=== PATIENT | female | born 2000 | race Caucasian/White ===

== ENCOUNTER → 2018-02-09 06:34 | Emergency (ER) | payer OTHER ==
[2018-02-09 06:41] VITALS: BP 111/64
--- NOTE | 2018-02-09 07:44 | ED ---
Back Pain - HPI Summary HPI Summary: Patient is a 18-year-old female who presents emergency department for right upper back pain times several days. Patient states she had upper respiratory infection 2 weeks ago and has had a lingering cough. She developed right upper back pain several days ago that is worse with movement and deep inspiration. 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 She otherwise denies fever, chills, abdominal pain, vomiting, diarrhea, urinary symptoms. She has been taking Tylenol and Motrin with minimal relief. Past medical history of ADHD. She denies recent surgery, prolonged sitting, history of clotting disorder, swelling in her legs, oral contraceptives. Symptoms are mild in severity. - History of Current Complaint Chief Complaint: EDGeneral Stated Complaint: BACK PAIN Time Seen by Provider: 02/09/18 07:03 Hx Obtained From: Patient Pain Intensity: 8 - Allergies/Home Medications Allergies/Adverse Reactions: Allergies Allergy/AdvReac Type Severity Reaction Status Date / Time cefprozil [From Cefzil] Allergy Hives Verified 02/09/18 06:38 Home Medications: Home Medications Amphetamine/Dextroamph ER(NF) [Adderal XR (NF)] 10 mg PO DAILY 02/09/18 [ History Confirmed 02/09/18] PMH/Surg Hx/FS Hx/Imm Hx Previously Healthy: Yes Infectious Disease History: No Infectious Disease History: Denies: Traveled Outside the [place] in Last 30 Days - Social History Occupation: Employed Full-time Lives: With Family Review of Systems Constitutional: Negative Eyes: Negative ENT: Negative Cardiovascular: Negative Positive: Cough. Negative: Shortness Of Breath Gastrointestinal: Negative Negative: Abdominal Pain, Vomiting, Diarrhea, Nausea Genitourinary: Negative Positive: Other - Right upper back pain Skin: Negative Neurological: Negative All Other Systems Reviewed And Are Negative: Yes Physical Exam Triage Information Reviewed: Yes Vital Signs On Initial Exam: Initial Vitals Temp Pulse Resp BP Pulse Ox 97.5 F 73 20 111/64 100 02/09/18 06:35 02/09/18 06:35 02/09/18 06:35 02/09/18 06:35 02/09/18 06:35 Vital Signs Reviewed: Yes Appearance: Positive: Well-Appearing - Pt. sitting up in bed in NAD. Signficiant other present. Skin: Positive: Warm, Dry Head/Face: Positive: Normal Head/Face Inspection Eyes: Positive: Normal ENT: Positive: Pharynx normal, TMs normal. Negative: Nasal congestion Neck: Positive: Supple Respiratory/Lung Sounds: Positive: Clear to Auscultation, Breath Sounds Present Cardiovascular: Positive: Normal, RRR Abdomen Description: Positive: Other: - No CVA tenderness. Musculoskeletal: Positive: Normal, Other - Pain and tightening of muscles surrounding right scapula. Neurological: Positive: Normal Psychiatric: Positive: Normal Diagnostics - Vital Signs Vital Signs Temp Pulse Resp BP Pulse Ox 02/09/18 06:35 97.5 F 73 20 111/64 100 - Laboratory Lab Statement: Any lab studies that have been ordered have been reviewed, and results considered in the medical decision making process. Back Pain Course/Dx - Course Course Of Treatment: Pt. presenting with right upper back pain that is reproducible. She has had recent ongoing cough. She is afebrile with stable vital signs. Oxygenation saturation is 100% on room air which is normal. PERC score is 0. Will obtain CXR to r/o pneumonia. Chest x-ray is negative for infiltrate or acute changes, reading per myself and Dr. Kumar. Results were discussed. Will prescribe naproxen and Flexeril. Advised to apply warm compresses intermittently and gentle massage. Close follow-up with PCP return to the ER symptoms change or worsen. Patient understands and agrees with this plan. - Diagnoses Differential Diagnosis/HQI/PQRI: Positive: Strain, Sprain Provider Diagnoses: Muscle spasm, Muscle strain Discharge - Sign-Out/Discharge Documenting (check all that apply): Discharge/Admit/Transfer - Discharge Plan Condition: Good Disposition: HOME Prescriptions: Cyclobenzaprine TAB* [Flexeril 10 MG TAB*] 10 mg PO TID PRN #9 tab PRN Reason: Pain Naproxen [Naproxen 500 mg tab] 500 mg PO Q12H #20 tablet. Patient Education Materials: Musculoskeletal Pain (ED), Muscle Spasm (ED) Forms: *School Release, *Work Release Referrals: Abhijit GOFF, Tano Mcgrath [Primary Care Provider] - Additional Instructions: Schedule a follow up appointment with your PCP Take medication as directed Apply warm compresses to back Gentle massage Return to ER if symptoms change or worsen - Billing Disposition and Condition Condition: GOOD Disposition: HOME
--- NOTE | 2018-02-09 08:28 | RAD ---
INDICATION: Cough. Chest pain COMPARISON: None TECHNIQUE: PA and lateral dual-energy views were obtained. FINDINGS: Bones/Soft Tissues: There are no acute bony findings. Cardiomediastinal: The cardiomediastinal silhouette is normal. Lungs: There are no infiltrates. Pleura: There are no pleural effusions. Other: None IMPRESSION: NORMAL CHEST
== END | disposition home or self-care (01) ==
LOC: ED 06:34
DX: M62.830 Muscle spasm of back (principal); S29.012A Strain of muscle and tendon of back wall of thorax, initial encounter; X58.XXXA Exposure to other specified factors, initial encounter; Y92.9 Unspecified place or not applicable; R05 Cough; Z88.3 Allergy status to other anti-infective agents
CPT/HCPCS: 71046; 99281

== ENCOUNTER 2019-07-24 08:42 | Emergency (ER) | payer OTHER ==
--- NOTE | 2019-07-24 08:56 | ED ---
Psychiatric Complaint - HPI Summary HPI Summary: Pt is a 19 y/o F presenting to the ED for a psychiatric complaint. Pt has not been [place] [facility] or had an admission in the past. Pt was lying on the stretcher upon entering the room. Pt has SI that have increased in frequency since her brothers suicide a year ago. Pt denies having a plan, self-harm, myalgia, PARKER, or fever. Pt denies any PMHx or PSHx. Pt has a FMHx of DM and cancer. - History Of Current Complaint Chief Complaint: EDMentalHealth Time Seen by Provider: 07/24/19 08:52 Hx Obtained From: Patient Onset/Duration: Gradual Onset, Lasting Weeks, Still Present Timing: Weeks Severity Initially: Moderate Severity Currently: Moderate Aggravating Factor(s): Recent Stress - Brother's suicide one year ago Alleviating Factor(s): Nothing Associated Signs And Symptoms: Positive: Negative Has Suicidal: Reports: Thoughts. Denies: With A Plan - Allergies/Home Medications Allergies/Adverse Reactions: Allergies Allergy/AdvReac Type Severity Reaction Status Date / Time cefprozil [From Cefzil] Allergy Hives Verified 07/24/19 08:50 PMH/Surg Hx/FS Hx/Imm Hx Previously Healthy: Yes Endocrine/Hematology History: Denies: Hx Diabetes Cardiovascular History: Denies: Hx Hypercholesterolemia, Hx Hypertension Respiratory History: Denies: Hx Asthma Sensory History: Denies: Hx Legally Blind, Hx Deafness Opthamlomology History: Denies: Hx Legally Blind EENT History: Denies: Hx Deafness - Surgical History Surgical History: None Surgery Procedure, Year, and Place: None Infectious Disease History: No Infectious Disease History: Denies: Traveled Outside the [place] in Last 30 Days - Family History Known Family History: Positive: Diabetes, Other - Cancer - Social History Occupation: Employed Full-time Alcohol Use: Occasionally Hx Substance Use: Yes Substance Use Type: Reports: Marijuana Hx Tobacco Use: No Smoking Status (MU): Never Smoked Tobacco Review of Systems Negative: Fever Negative: Myalgia Negative: Headache Positive: Other - Positive SI; negative self-harm or plan All Other Systems Reviewed And Are Negative: Yes Physical Exam - Summary Physical Exam Summary: Constitutional: Well-developed, Well-nourished, Alert. (-) Distressed Skin: Warm, Dry HENT: Normocephalic; Atraumatic Eyes: Conjunctiva normal Neck: Musculoskeletal ROM normal neck. (-) JVD, (-) Stridor Cardio: Rhythm regular, rate normal, Heart sounds normal; Intact distal pulses Pulmonary/Chest wall: Effort normal. (-) Respiratory distress Abd: Soft, (-) tenderness, (-) Distension, (-) Guarding Musculoskeletal: (-) Edema Lymph: (-) Cervical adenopathy Neuro: Alert, Oriented x3 Psych: tearful Triage Information Reviewed: Yes Vital Signs On Initial Exam: Initial Vitals Temp Pulse Resp BP Pulse Ox 97.2 F 82 16 143/97 100 07/24/19 08:44 07/24/19 08:44 07/24/19 08:44 07/24/19 08:44 07/24/19 08:44 Vital Signs Reviewed: Yes Procedures - Sedation Patient Received Moderate/Deep Sedation with Procedure: No Diagnostics - Vital Signs Vital Signs Temp Pulse Resp BP Pulse Ox 07/24/19 08:44 97.2 F 82 16 143/97 100 - Laboratory Result Diagrams: 07/24/19 09:05 07/24/19 09:06 Lab Statement: Any lab studies that have been ordered have been reviewed, and results considered in the medical decision making process. - EKG 13:40 Cardiac Rate: Bradycardia - 57 BPM EKG Rhythm: Sinus Bradycardia ST Segment: Normal Ectopy: None Summary of EKG Findings: EKG at 13:40 shows sinus bradycardia with 57 BPM, no STEMI, nml intervals, nml axis, no acute changes. Reviewed and interpreted by ED physician. Re-Evaluation - Re-Evaluation Joanne Templeton Re-Evaluation Time: 09:11 Change: Unchanged Comment: At 09:11, pt is medically cleared for a MH evaluation. Course/Dx - Course Course Of Treatment: 18-year-old female who presents with suicidal ideation and depression the setting of brother's . Physical exam a tearful but well- appearing female, no acute distress. We'll have psychiatry assess - Differential Dx/Clinical Impression Provider Diagnosis: Depression Discharge ED - Sign-Out/Discharge Documenting (check all that apply): Patient Departure - Transfer - Discharge Plan Condition: Stable Disposition: TRANS HIGHER LVL OF CARE FAC Referrals: Abhijit GOFF, Tano Mcgrath [Primary Care Provider] - - Billing Disposition and Condition Condition: STABLE Disposition: Trans Higher Lvl of Care Fac - Attestation Statements Document Initiated by Chaloibe: Yes Documenting Scribe: Marnie Rae Provider For Whom Juan Diego is Documenting (Include Credential): Marck Schwarz MD Scribe Attestation: IMarnie, scribed for Marck Schwarz MD on 07/24/19 at 1734. Scribe Documentation Reviewed: Yes Provider Attestation: The documentation as recorded by the chaloibMarnie warner accurately reflects the service I personally performed and the decisions made by me, Marck Schwarz MD Status of Scribe Document: Viewed Consult Consult: At 10:33, sped teacher reports that pts case was reviewed by Dr. Aceves who states pt requires inpatient admission for a diagnosis of depression. As there are no available beds at [facility] [place], so pt is slated to transfer to another psychiatric facillity.
[2019-07-24 09:22] LABS: ABS Basophils 0.1 10^3/ul (0-0.2); ABS Eosinophils 0.1 10^3/ul (0-0.6); ABS Lymphocytes 2.2 10^3/ul (1.0-4.8); ABS Monocytes 0.4 10^3/ul (0-0.8); ABS Neutrophils 2.6 10^3/ul (1.5-7.7); Eosinophil % 2.6 %; Hematocrit 43 % (35-47); Hemoglobin 14.5 g/dL (12.0-16.0); Lymphocyte % 40.3 %; Mean Corpuscular HGB Conc 34 g/dL (31-36); Mean Corpuscular Hemoglobin 32 pg (27-31); Mean Corpuscular Volume 95 fL (80-97); Mean Platelet Volume 8.6 fL (7.4-10.4); Nucleated Red Blood Cells % 0.2; Platelet Count 261 10^3/uL (150-450); Red Blood Count 4.52 10^6 /uL (3.70-4.87); Red Cell Distribution Width 13 % (10-15); White Blood Count 5.5 10^3/uL (3.5-10.8)
[2019-07-24 09:35] LABS: ALT 10 U/L (7-52); AST 17 U/L (13-39); Albumin 4.8 g/dL (3.2-5.2); Albumin/Globulin Ratio 2.2 (1-3); Alkaline Phosphatase 49 U/L (34-104); Anion Gap 6 mmol/L (2-11); BUN/Creatinine Ratio 19.5 (8-20); Blood Urea Nitrogen 15 mg/dL (6-24); CO2 Carbon Dioxide 27 mmol/L (22-32); Calcium 9.2 mg/dL (8.6-10.3); Chloride 107 mmol/L (101-111); EGFR African American 114.5 (>60); EGFR Non-African American 94.6 (>60); Globulin 2.2 g/dL (2-4); Glucose 75 mg/dL (70-100); Potassium 3.7 mmol/L (3.5-5.0); Sodium 140 mmol/L (135-145)
[2019-07-24 09:44] LABS: HCG Pregnancy < 0.60 mIU/mL
[2019-07-24 09:50] LABS: Acetaminophen < 15 mcg/mL; Alcohol < 10 mg/dL (<10); Salicylate < 2.50 mg/dL (<30)
[2019-07-24 10:05] LABS: TSH (Thyroid Stimulating Horm) 0.62 mcIU/mL (0.34-5.60)
[2019-07-24 10:46] LABS: Urine Appearance Clear; Urine Bilirubin Negative (Negative); Urine Blood Negative (Negative); Urine Color Straw; Urine Glucose Negative (Negative); Urine Ketones Negative (Negative); Urine Nitrite Negative (Negative); Urine Protein Negative (Negative); Urine Specific Gravity 1.006 (1.010-1.030); Urine Urobilinogen Negative (Negative)
[2019-07-24 11:09] LABS: Urine Benzodiazepine Screen None Detected (None Detect); Urine Opiates Screen None Detected (None Detect)
--- NOTE | 2019-07-24 19:16 | ED ---
Progress - Progress Note Progress Note: Patient is received as a sign out from Dr. Schwarz at 1900 07/24/19 shift change pending disposition of this mental health patient. There are no appropriate beds available for the patient at [facility], patient is currently slated for transfer. 1909 - worker Dayan reports that the patient has been accepted for transfer to [facility]. Transfer paperwork was signed. - Consult/PCP Time Called: 09:44 Re-Evaluation - Re-Evaluation Frist Templeton Re-Evaluation Time: 20:25 Change: Unchanged Comment: Doctor to Doctor report was given to Dr. Maher at [facility]. Course/Dx - Course Course Of Treatment: Patient is received as a sign out from Dr. Schwarz at 1900 07/24/19 shift change pending disposition of this mental health patient. There are no appropriate beds available for the patient at [facility], patient is currently slated for transfer. 1909 - worker Dayan reports that the patient has been accepted for transfer to [facility]. Transfer paperwork was signed. Doctor to Doctor report was given to Dr. Maher at [facility]. - Diagnoses Provider Diagnoses: Suicidal ideation Discharge ED - Sign-Out/Discharge Documenting (check all that apply): Patient Departure - transfer, Receiving Sign -Out Receiving patient FROM: Marck Schwarz - Discharge Plan Condition: Stable Disposition: TRANS HIGHER LVL OF CARE FAC Referrals: Abhijit GOFF, Tano Mcgrath [Primary Care Provider] - - Billing Disposition and Condition Condition: STABLE Disposition: Trans Higher Lvl of Care Fac - Attestation Statements Document Initiated by Juan Diego: Yes Documenting Scribe: AMY VANG Provider For Whom Juan Diego is Documenting (Include Credential): MARCELLA LEGER MD Scribe Attestation: AMY Vann, scribed for MARCELLA LEGER MD on 07/25/19 at 0251. Scribe Documentation Reviewed: Yes Provider Attestation: The documentation as recorded by the AMY dominguez accurately reflects the service I personally performed and the decisions made by me, MARCELAL LEGER MD Status of Scribe Document: Viewed
[2019-07-24 21:55] VITALS: BP 110/71
== END 2019-07-24 22:06 | disposition short-term general hospital (02) ==
LOC: ED 08:42
DX: R45.851 Suicidal ideations (principal); Z79.899 Other long term (current) drug therapy
CPT/HCPCS: 36415; 80053; 80307; 80320; 80329; 81003; 84443; 84702; 85025; 93005; 99285; G0480